=== PATIENT | male | born 1975 | race Caucasian/White ===

== ENCOUNTER 2017-09-09 00:54 | Emergency (ER) | payer MEDICAID ==
[2017-09-09 03:25] VITALS: BP 139/68
== END 2017-09-09 03:25 | disposition left against medical advice (07) ==
LOC: ED 00:54
DX: R21 Rash and other nonspecific skin eruption (principal); Z53.21 Procedure and treatment not carried out due to patient leaving prior to being seen by health care provider

== ENCOUNTER 2017-09-17 03:42 | Emergency (ER) | payer MEDICAID ==
[~2017-09-17] VITALS: Ht 198.1 cm; Wt 99.8 kg
[2017-09-17 03:53] VITALS: Ht 198.1 cm; Wt 99.8 kg
[2017-09-17 08:35] VITALS: BP 146/79
== END 2017-09-17 08:35 | disposition home or self-care (01) ==
LOC: ED 03:42
DX: L30.9 Dermatitis, unspecified (principal); J02.9 Acute pharyngitis, unspecified

== ENCOUNTER 2018-11-19 07:41 | Emergency (ER) | payer MEDICAID ==
[~2018-11-19] VITALS: Ht 198.1 cm; Wt 127.0 kg
[2018-11-19 08:00] VITALS: Ht 198.1 cm; Wt 127.0 kg
[2018-11-19 09:07] LABS: BASOPHIL % 0.5 % (0-2); PLATELET COUNT 225 x10^3mcL (130-400); RED CELL DISTRIBUTION WIDTH 13.4 % (11.5-14.5)
[2018-11-19 09:25] LABS: CALCIUM 9.4 mg/dL (8.5-10.1); CARBON DIOXIDE 28.8 mmol/L (21-32); CHLORIDE SERUM 103 mmol/L (98-107); CREATININE SERUM 0.9 mg/dL (0.7-1.3); GFR1 > 60 mL/min; GLUCOSE SERUM 135 mg/dL (74-106); POTASSIUM SERUM 4.1 mmol/L (3.5-5.1); SODIUM SERUM 138 mmol/L (136-145)
[2018-11-19 09:31] LABS: ALBUMIN 3.5 g/dL (3.4-5.0); ALKALINE PHOSPHATASE 92 U/L (46-116); ALT/SGPT 252 U/L (16-63); AST/SGOT 78 U/L (15-37); BILIRUBIN TOTAL 0.4 mg/dL (0.20-1.00); LIPASE 424 IU/L (73-393); TOTAL PROTEIN, SERUM 7.3 g/dL (6.4-8.2); TRIGLYCERIDES 133 mg/dL (<150)
[2018-11-19 09:33] LABS: CHOLESTEROL 118 mg/dL (<200); CHOLESTEROL/HDL RATIO 3.9; HDL CHOLESTEROL 30 mg/dL (40-60)
[2018-11-19 10:34] LABS: T3 TOTAL 1.43 ng/mL
[2018-11-19 10:35] LABS: FREE T4 1.18 ng/dL (0.76-1.46); FREE THYROXINE INDEX 3.9 ug/dL (1.4-4.5)
[2018-11-19 11:20] VITALS: BP 145/89
== END 2018-11-19 11:20 | disposition left against medical advice (07) ==
LOC: ED 07:41
PROVIDERS: Specialist
DX: K85.10 Biliary acute pancreatitis without necrosis or infection (principal); K81.9 Cholecystitis, unspecified
CPT/HCPCS: 36415; 83880; 84439; Q0092

== ENCOUNTER 2018-11-20 20:44 | Emergency (ER) | payer MEDICAID ==
[~2018-11-20] VITALS: Ht 198.1 cm; Wt 130.6 kg
[2018-11-20 20:47] VITALS: BP 135/91; Ht 198.1 cm; Wt 130.6 kg
== END 2018-11-21 00:36 | disposition left against medical advice (07) ==
LOC: ED 20:44
DX: Z53.21 Procedure and treatment not carried out due to patient leaving prior to being seen by health care provider (principal)

== ENCOUNTER 2018-11-21 15:55 | Emergency (ER) | payer MEDICAID | END 2018-11-22 05:29 | disposition left against medical advice (07) | LOC: ED 15:55 → MU 20:24 → ED 15:55 → MU 20:24 → ED 15:55 → MU 20:24 → ED 15:55 → MU 20:24 → ED 15:55 → MU 20:24 → ED 15:55 → MU 20:24 → ED 15:55 → MU 20:24 → ED 15:55 → MU 20:24 | DX: K81.0 Acute cholecystitis (principal); F15.10 Other stimulant abuse, uncomplicated; R74.0 Nonspecific elevation of levels of transaminase and lactic acid dehydrogenase [LDH] ==